=== PATIENT | male | born 1935 | race Caucasian/White ===

== ENCOUNTER 2016-12-05 10:06 | Outpatient (CLI) | payer OTHER ==
--- NOTE | 2016-12-05 14:15 | DIAGNOSTIC IMAGING REPORT ---
PROCEDURE: 2-D M-mode echo Doppler CLINICAL INDICATION: CHF history of ASD repair TECHNIQUE: Standard technique technically difficult study COMPARISON: None available FINDINGS: The aortic valve exhibits calcification with aortic stenosis present. This is a moderate degree peak gradient of 36 mean [id number] CECI 0.7 cm2 one to 2+ aortic insufficiency detected. The mitral valve exhibits moderate mitral regurgitation without stenosis appreciated moderate TR is present with RVSP 59 biatrial dilation present RVE present with RV function is normal with elevated RVSP of 59 no abnormalities of the aortic root or pericardium are appreciated. Interatrial septum appears to be intact. No abnormalities of the pericardium or aortic root. IMPRESSION: Moderately severe aortic stenosis mean gradient 18 degrees of 36 88 0.7 cm2 Mild to moderate aortic regurgitation Concentric LVH Biatrial enlargement RVE with elevated RVSP of 59 Moderate MR Moderate TR As best can be appreciated intact atrial septum with intact ASD repair In a technically difficult study
--- NOTE | 2016-12-05 14:15 | DIAGNOSTIC IMAGING REPORT ---
PROCEDURE: 2-D M-mode echo Doppler CLINICAL INDICATION: CHF history of ASD repair TECHNIQUE: Standard technique technically difficult study COMPARISON: None available FINDINGS: The aortic valve exhibits calcification with aortic stenosis present. This is a moderate degree peak gradient of 36 mean [id number] CECI 0.7 cm2 one to 2+ aortic insufficiency detected. The mitral valve exhibits moderate mitral regurgitation without stenosis appreciated moderate TR is present with RVSP 59 biatrial dilation present RVE present with RV function is normal with elevated RVSP of 59 no abnormalities of the aortic root or pericardium are appreciated. Interatrial septum appears to be intact. No abnormalities of the pericardium or aortic root. IMPRESSION: Moderately severe aortic stenosis mean gradient 18 degrees of 36 88 0.7 cm2 Mild to moderate aortic regurgitation Concentric LVH Biatrial enlargement RVE with elevated RVSP of 59 Moderate MR Moderate TR As best can be appreciated intact atrial septum with intact ASD repair In a technically difficult study
== END 2016-12-05 23:00 ==
LOC: US SRH 10:06
DX: I08.3 Combined rheumatic disorders of mitral, aortic and tricuspid valves (principal)